=== PATIENT | female | born 1995 | race Caucasian/White ===

== ENCOUNTER → 2017-01-17 | Outpatient (CLI) | payer OTHER ==
[2017-01-17 17:17] LABS: BASO % 0.4 % (0.0-1.0); EOS # 0.1 K/mm3 (0.0-0.50); EOS % 1.2 % (0.0-3.0); LARGE UNSTAINED CELL # 0.1 K/mm3 (0.0-0.4); LARGE UNSTAINED CELL % 1.4 % (0.0-4.0); LYMPH # 1.9 K/mm3 (1.5-6.5); LYMPH % 21.1 % (24.0-44.0); MEAN CORPUSCULAR HEMOGLOBIN 29.2 pg (27.0-33.0); MEAN CORPUSCULAR HGB CONC 34.9 g/dl (32.0-36.5); MEAN CORPUSCULAR VOLUME 83.8 fl (80.0-96.0); MONO # 0.3 K/mm3 (0.0-0.8); MONO % 3.9 % (0.0-5.0); NEUTROPHILS # 6.3 K/mm3 (1.8-7.7); PLATELET COUNT, AUTOMATED 197 k/mm3 (150-450); RED CELL DISTRIBUTION WIDTH 13.1 % (11.5-14.5); WHITE BLOOD COUNT 8.8 K/mm3 (4.0-10.0)
[2017-01-17 17:33] LABS: ALT/SGPT 19 U/L (12-78); AST/SGOT 12 U/L (15-37); BILIRUBIN,TOTAL 0.2 MG/DL (0.2-1.0); CREATININE FOR GFR 0.49 MG/DL (0.55-1.02); GLOMERULAR FILTRATION RATE > 60.0 (>60); URIC ACID 3.8 MG/DL (2.6-6.0)
[2017-01-17 18:25] LABS: CREATININE, SERUM 0.5 MG/DL (0.6-1.0)
[2017-01-17 18:47] LABS: CREATININE CLEARANCE, URINE 157.4 ML/MIN (75-115)
[2017-01-19 10:15] LABS: HBsAg Prenatal NEGATIVE (NEGATIVE)
== END ==
LOC: M LAB 16:29
PROVIDERS: ATTEND Advanced Practice Midwife
DX: Z34.81 Encounter for supervision of other normal pregnancy, first trimester (principal); Z36 Encounter for antenatal screening of mother; Z3A.00 Weeks of gestation of pregnancy not specified

== ENCOUNTER → 2017-03-20 | Outpatient (CLI) | payer OTHER ==
--- NOTE | 2017-03-20 15:24 | REP ---
Clinical: Anatomical evaluation. Comparison: None . Findings: Examination demonstrates a single live intrauterine in transverse (head to maternal right) presentation. motion is identified by technologist. Placenta is noted anteriorly and grade zero without evidence for placenta previa or abruption. Amniotic fluid volume is normal. Cervix measures 3.8 cm in length and appears closed. No evidence for nuchal cord. Gestational age by current measurements 17 weeks 6 days with LUZ 08/22/2017 . FHR equals 147 beats per minute. BPD 3.8 cm 17 weeks 4 days HC 14.4 cm 17 weeks 4 days AC 12.4 cm 18 weeks 0 days FL 2.7 cm 18 weeks 2 days HL 2.8 cm 18 weeks 6 days HC/AC ratio 1.16 Estimated weight 223 grams ( 57th percentile). Anatomical assessment demonstrates normal structures including cranium, choroid plexus, cavum, cerebellum/posterior fossa, nose and lips, lungs, four-chamber heart, diaphragm, stomach, cord insertion/three-vessel cord, kidneys/bladder, spine, and extremities. Impression: Single live intrauterine in transverse lie. Estimated weight is within normal limits. Limited evaluation of the facial profile and cardiac ventricular outflow tracts may warrant reevaluation and follow-up. Remainder of the anatomical assessment is complete and normal. Signed by Wyatt Boyd MD 03/20/2017 03:16 P
== END ==
LOC: M SMT 13:44
PROVIDERS: ATTEND Advanced Practice Midwife
DX: Z36.2 Encounter for other antenatal screening follow-up (principal)

== ENCOUNTER → 2017-04-09 | Outpatient (CLI) | payer OTHER ==
--- NOTE | 2017-04-09 19:43 | REP ---
LIMITED OBSTETRICAL ULTRASOUND: CLINICAL: Anatomical reevaluation. COMPARISON: 03/20/2017 FINDINGS: Ultrasound examination demonstrates single live intrauterine in transverse lie with head towards the maternal right side. motion was identified by technologist. Placenta is noted anteriorly and grade 1 without evidence for placenta previa or abruption. Amniotic fluid volume is within normal limits. Cervix measures 4.1 cm in length and appears closed. Gestational age by first ultrasound 20 weeks 5 days with estimated date of delivery 08/22/2017. heart rate equals 153 beats per minute. Estimated weight 410 grams, (66th percentile). Anatomical assessment demonstrates normal cranium, choroid plexus, cavum, cerebellum/posterior fossa, facial features, lungs, four-chamber heart, diaphragm, stomach, cord insertion/three-vessel cord, kidneys/bladder, spine and extremities. IMPRESSION: Single live intrauterine in transverse lie. Nuchal cord cannot be excluded. In conjunction with prior examination anatomical assessment is complete and normal. Signed by Wyatt Boyd MD 04/12/2017 11:53 P
== END ==
LOC: M SMT 10:43
PROVIDERS: ATTEND Advanced Practice Midwife
DX: Z34.82 Encounter for supervision of other normal pregnancy, second trimester (principal)

== ENCOUNTER → 2017-04-28 | Outpatient (CLI) | payer OTHER ==
[2017-04-28 16:34] LABS: BASO % 0.4 % (0.0-1.0); EOS # 0.1 10^3/uL (0.0-0.50); EOS % 0.9 % (0.0-3.0); IMMATURE GRANULOCYTE % 1.2 % (0-0); LYMPH # 1.7 10^3/uL (1.5-6.5); LYMPH % 18.3 % (24.0-44.0); MEAN CORPUSCULAR HEMOGLOBIN 28.7 pg (27.0-33.0); MEAN CORPUSCULAR HGB CONC 34.1 g/dl (32.0-36.5); MEAN CORPUSCULAR VOLUME 84.1 fl (80.0-96.0); MONO # 0.6 10^3/uL (0.0-0.8); MONO % 5.8 % (0.0-5.0); NEUTROPHILS % 73.4 % (36.0-66.0); PLATELET COUNT, AUTOMATED 161 10^3/uL (150-450); RED CELL DISTRIBUTION WIDTH 13.5 % (11.5-14.5); WHITE BLOOD COUNT 9.5 10^3/uL (4.0-10.0)
[2017-04-28 17:02] LABS: ALBUMIN 3.2 GM/DL (3.2-5.2); ALBUMIN/GLOBULIN RATIO 0.84 (1.00-1.93); ALKALINE PHOSPHATASE 77 U/L (45-117); ALT/SGPT 19 U/L (12-78); ANION GAP 8 MEQ/L (8-16); AST/SGOT 16 U/L (7-37); BILIRUBIN,TOTAL 0.2 MG/DL (0.2-1.0); BLOOD UREA NITROGEN 5 MG/DL (7-18); CALCIUM LEVEL 8.4 MG/DL (8.5-10.1); CARBON DIOXIDE LEVEL 25 MEQ/L (21-32); CHLORIDE LEVEL 107 MEQ/L (98-107); CREATININE FOR GFR 0.41 MG/DL (0.55-1.02); GLOMERULAR FILTRATION RATE > 60.0 (>60); GLUCOSE, FASTING 75 MG/DL (70-105); SODIUM LEVEL 140 MEQ/L (136-145)
== END ==
LOC: M SMT 15:07
PROVIDERS: ATTEND Obstetrics & Gynecology
DX: Z36.89 Encounter for other specified antenatal screening (principal); Z3A.00 Weeks of gestation of pregnancy not specified

== ENCOUNTER → 2017-05-22 | Outpatient (CLI) | payer OTHER ==
[2017-05-22 18:40] LABS: BASO % 0.3 % (0.0-1.0); EOS # 0.1 10^3/uL (0.0-0.50); HEMATOCRIT 37.1 % (36.0-47.0); HEMOGLOBIN 12.3 g/dl (12.0-16.0); IMMATURE GRANULOCYTE # 0.1 10^3/uL (0-0); IMMATURE GRANULOCYTE % 0.9 % (0-0); LYMPH # 1.6 10^3/uL (1.5-6.5); LYMPH % 16.7 % (24.0-44.0); MEAN CORPUSCULAR HEMOGLOBIN 28.1 pg (27.0-33.0); MEAN CORPUSCULAR HGB CONC 33.2 g/dl (32.0-36.5); MEAN CORPUSCULAR VOLUME 84.7 fl (80.0-96.0); MONO # 0.5 10^3/uL (0.0-0.8); NEUTROPHILS # 7.5 10^3/uL (1.8-7.7); NEUTROPHILS % 76.1 % (36.0-66.0); PLATELET COUNT, AUTOMATED 158 10^3/uL (150-450); RED BLOOD COUNT 4.38 10^6/uL (4.00-5.40); RED CELL DISTRIBUTION WIDTH 13.3 % (11.5-14.5); WHITE BLOOD COUNT 9.8 10^3/uL (4.0-10.0)
[2017-05-22 18:52] LABS: GLUCOSE CHALLENGE TEST 1 HOUR 136 MG/DL (LESS THAN 140)
== END ==
LOC: M SMT 13:06
DX: Z34.83 Encounter for supervision of other normal pregnancy, third trimester (principal)

== ENCOUNTER → 2017-05-26 | Outpatient (CLI) | payer OTHER ==
[2017-05-26 08:01] LABS: GLUCOSE, FASTING 85 MG/DL (LESS THAN 95)
[2017-05-26 08:43] LABS: 1 HR GLUCOSE 156 MG/DL (LESS THAN 180)
[2017-05-26 10:12] LABS: 2 HR GLUCOSE 131 MG/DL (LESS THAN 155)
[2017-05-26 11:17] LABS: 3 HR GLUCOSE 112 MG/DL (LESS THAN 140)
== END ==
LOC: M LAB 06:57
DX: Z34.82 Encounter for supervision of other normal pregnancy, second trimester (principal)

== ENCOUNTER → 2017-07-24 | Outpatient (REF) | payer OTHER | LOC: M LAB REF 13:04 | DX: Z34.83 Encounter for supervision of other normal pregnancy, third trimester (principal) ==

== ENCOUNTER 2017-08-17 06:18 | Inpatient (IN) | payer OTHER ==
[2017-08-17] MEDS: LR 1,000 ML IV ×4 (06:45→18:39)
[2017-08-17] MEDS ORDERED: LR 1,000 ML IV (06:45)
[2017-08-17 06:55] LABS: HEMATOCRIT 36.2 % (36.0-47.0); MEAN CORPUSCULAR HEMOGLOBIN 25.8 pg (27.0-33.0); MEAN CORPUSCULAR HGB CONC 33.1 g/dl (32.0-36.5); MEAN CORPUSCULAR VOLUME 77.8 fl (80.0-96.0); PLATELET COUNT, AUTOMATED 172 10^3/uL (150-450); RED BLOOD COUNT 4.65 10^6/uL (4.00-5.40); RED CELL DISTRIBUTION WIDTH 14.9 % (11.5-14.5); WHITE BLOOD COUNT 10.8 10^3/uL (4.0-10.0)
[2017-08-17] MEDS ORDERED: MORPHINE PRES-FREE INJ 10 MG/10 ML VIAL (J2274) As Ordered (07:01)
[2017-08-17] MEDS ORDERED: OXYTOCIN INJ 10 UNITS/ML VIAL (J2590) As Ordered ×2 (07:02)
[2017-08-17] MEDS: BICITRA 30ML SOLN UDC PO (07:34)
[2017-08-17] MEDS ORDERED: NALOXONE INJ 0.4 MG/1 ML VIAL (J2310) IV ×2 (07:47)
[2017-08-17] MEDS ORDERED: NALBUPHINE HCL 10 MG/ML AMP (J2300) IV (07:47)
[2017-08-17] MEDS ORDERED: METOCLOPRAMIDE INJ 10MG/2ML VIAL (J2765) IV ×2 (07:47→09:30)
[2017-08-17] MEDS ORDERED: ONDANSETRON 4MG/2ML VIAL (J2405) IV ×2 (07:47→09:30)
[2017-08-17] MEDS ORDERED: PHENYLephrine HCL 500 MCG/5 ML (100MCG/ML) SYRINGE (J2370) As Ordered (07:57)
[2017-08-17] MEDS ORDERED: ePHEDrine SULFATE 25 MG/5 ML(5MG/ML) SYRINGE As Ordered (07:57)
[2017-08-17] MEDS ORDERED: ATROPINE SULF 0.4 MG/ML 1ML VIAL (J0461) As Ordered (07:57)
[2017-08-17] MEDS ORDERED: ONDANSETRON 4MG/2ML VIAL (J2405) As Ordered (08:27)
[2017-08-17] MEDS ORDERED: KETOROLAC 60 MG/2 ML VIAL (J1885) As Ordered (08:28)
[2017-08-17] MEDS ORDERED: PERCOCET 5MG/325MG TAB PO ×2 (09:30→11:00)
[2017-08-17] MEDS ORDERED: fentaNYL 100 MCG/2 ML INJECTION (J3010) IV (09:30)
[2017-08-17] MEDS ORDERED: MEASLES,MUMPS,RUBELLA VACCINE INJ (MMR-II) (90707) SC (11:00)
[2017-08-17] MEDS ORDERED: METHYLERGONOVINE MALEATE 0.2 MG TAB PO (11:00)
[2017-08-17] MEDS ORDERED: RHOGAM 300 MCG (1500 IU) INJ (J2790) IM (11:00)
[2017-08-17] MEDS: CLINDAMYCIN 900 MG in APPROPRIATE DILUENT 1 EA IV (11:02)
[2017-08-17] MEDS: GENTAMICIN 120 MG in D5W 50 ML IV (11:02)
[2017-08-17] MEDS: KETOROLAC 30 MG/ML VIAL (J1885) IV ×2 (13:49→21:17)
[2017-08-17] MEDS: DOCUSATE SODIUM 100 MG CAP PO (21:17)
[2017-08-18] MEDS: KETOROLAC 30 MG/ML VIAL (J1885) IV ×2 (02:23→08:14)
[2017-08-18] MEDS: LR 1,000 ML IV ×3 (02:57→18:57)
[2017-08-18 07:20] LABS: HEMATOCRIT 26.4 % (36.0-47.0); PLATELET COUNT, AUTOMATED 129 10^3/uL (150-450); RED BLOOD COUNT 3.34 10^6/uL (4.00-5.40); RED CELL DISTRIBUTION WIDTH 15.2 % (11.5-14.5); WHITE BLOOD COUNT 8.5 10^3/uL (4.0-10.0)
[2017-08-18 07:27] LABS: HEMOGLOBIN 8.7 g/dl (12.0-15.5)
[2017-08-18] MEDS: DOCUSATE SODIUM 100 MG CAP PO ×2 (08:14→20:39)
[2017-08-18] MEDS: ADACEL/BOOSTRIX VACCINE (DIPHTH/PERTUSS/ACELL/TETANUS)0.5ML SYR (90715) IM (08:14)
[2017-08-18] MEDS: PRENATAL VITAMINS CHEWABLE TABLET PO (08:15)
[2017-08-18] MEDS: IBUPROFEN 800 MG TAB PO (17:45)
[2017-08-18] MEDS: PERCOCET 5MG/325MG TAB PO (20:39)
[2017-08-19] MEDS: IBUPROFEN 800 MG TAB PO ×2 (00:49→09:06)
[2017-08-19] MEDS: LR 1,000 ML IV (02:57)
[2017-08-19] MEDS: PRENATAL VITAMINS CHEWABLE TABLET PO (09:05)
[2017-08-19] MEDS: DOCUSATE SODIUM 100 MG CAP PO (09:05)
== END 2017-08-19 10:55 | disposition home or self-care (01) | DRG 766 ==
LOC: M LDI 06:18 → M OBS 10:49
PROVIDERS: Obstetrics & Gynecology
PROC: 10D00Z1 Extraction of Products of Conception, Low, Open Approach (ICD-10-PCS; principal; 2017-08-17 07:30)
DX: O34.211 Maternal care for low transverse scar from previous cesarean delivery (principal); Z3A.39 39 weeks gestation of pregnancy; Z37.0 Single live birth